=== PATIENT | male | born 1975 | race Caucasian/White ===

== ENCOUNTER 2019-11-05 15:43 | Inpatient (IN) | payer OTHER ==
[~2019-11-05] VITALS: Ht 175.2 cm; Wt 126.6 kg
[~2019-11-05 15:43] MED LIST: GEODON20 MG PO; HYDROXYZINE PAM50 MG PO; NEURONTIN600 MG PO; ONDANSETRON4 MG PO; PRINIVIL40 MG PO; SINEMET 25-100M1 TAB PO
[2019-11-05 15:44] VITALS: BP 139/91
[2019-11-05 16:43] LABS: BASO # 0.1 10*3/uL (0.0-0.1); BASO % 1.1 % (0.0-1.0); EOS # 0.3 10*3/uL (0.0-0.4); EOS % 2.7 % (1.0-4.0); HEMATOCRIT 43.7 % (42.0-52.0); HEMOGLOBIN 15.3 g/dl (14.0-18.0); LYMPH # 4.1 10*3/uL (1.3-4.4); LYMPH % 39.9 % (27.0-41.0); MEAN CELL VOLUME 96.7 fl (80.0-94.0); MEAN CORPUSCULAR HGB 33.8 pg (27.0-31.0); MEAN PLATELET VOLUME 9.8 fl (9.6-12.3); MONO # 0.8 10*3/uL (0.1-1.0); MONO % 7.7 % (3.0-9.0); NEUT % 48.4 % (47.0-73.0); PLATELET COUNT AUTOMATED 233 10*3/uL (130-400); RED BLOOD COUNT 4.52 10*6/uL (4.50-5.90); RED CELL DISTRI WIDTH 12.1 % (0-14.5); WHITE BLOOD COUNT 10.3 10*3/uL (4.8-10.8)
[2019-11-05 16:59] LABS: ACETAMINOPHEN (TYLENOL) < 5.0 ug/ml (10-30); ALBUMIN 3.3 gm/dl (3.1-4.5); ALKALINE PHOSPHATASE 100 U/L (45-117); BUN 10 mg/dl (7-24); CHLORIDE 109 mmol/L (98-107); ETHYL ALCOHOL < 3.0 mg/dl (<3); POTASSIUM 4.3 mmol/L (3.5-5.1); SGOT/AST 77 IU/L (3-35); SGPT/ALT 118 U/L (12-78); SODIUM 139 mmol/L (136-145); TOTAL PROTEIN 7.7 gm/dL (6.4-8.2)
[2019-11-05 17:13] LABS: BILIRUBIN NEGATIVE (NEGATIVE); BLOOD 2+ (NEGATIVE); CLARITY CLEAR (CLEAR); COLOR YELLOW (YELLOW); GLUCOSE NEGATIVE (NEGATIVE); KETONE NEGATIVE (NEGATIVE); LEUKO ESTERASE NEGATIVE (NEGATIVE); NITRITE NEGATIVE (NEGATIVE); PH 5.5 (5.0-9.0); SPECIFIC GRAVITY >= 1.030 (1.005-1.030); UROBILINOGEN 0.2 E.U./dl (0.2-1.0)
--- NOTE | 2019-11-05 17:18 | NUR ---
Patient meets [facility] criteria. Patient CINA=17, CIWAB=28. Patint does not know what he wants to do for post discharge.
[2019-11-05 17:22] LABS: URINE AMPHETAMINES > 1000 (1000ng/ml); URINE BARBITURATES < 200 (200ng/ml); URINE BENZODIAZEPINES > 200 (200ng/ml); URINE CANNABINOIDS (THC) < 50 (50ng/ml); URINE COCAINE > 300 (300ng/ml); URINE METHADONE < 300 (300ng/ml); URINE OPIATES > 300 (300ng/ml)
[2019-11-05 17:24] LABS: URINE PHENCYCLIDINE < 25 (25ng/ml)
--- NOTE | 2019-11-05 19:30 | NUR ---
PT GIVEN DINNER TRAY.
--- NOTE | 2019-11-05 19:35 | NUR ---
RECEIVED REPORT FROM JHONATAN FRANCES
[2019-11-05 22:30] VITALS: BP 121/71
--- NOTE | 2019-11-05 22:30 | NUR ---
Time: 2229 A 44 year old M admitted to under services of CAM SANDERS DO. Pt. arrived via bed from ER. Chief complaint: OPIATE, XANAX, AND FENTANYL ABUSE. JULISA VEGA
--- NOTE | 2019-11-05 22:56 | NUR ---
Patient displaying withdrawal symptoms, including: irritability, anxiousness, restlessness and agitation. Scheduled/PRN medications provided, SEE EMAR. Will continue to monitor medication effectiveness.
[2019-11-05] MEDS ORDERED: AMLODIPINE BESY10 MG PO (23:21)
[2019-11-05] MEDS ORDERED: GABAPENTIN800 MG PO (23:22)
--- NOTE | 2019-11-06 | NUR ---
Patient resting. Responding to scheduled medications with fewer complaints of pain and anxiety.
--- NOTE | 2019-11-06 01:15 | NUR ---
MEDICATED WITH ROUTINE MEDS TO ASSIST WITH WITHDRAWAL
[2019-11-06 04:00] VITALS: BP 118/68
--- NOTE | 2019-11-06 04:00 | NUR ---
Patient resting. Responding to scheduled medications with fewer complaints of pain and anxiety.
--- NOTE | 2019-11-06 06:30 | NUR ---
Patient resting. Responding to scheduled medications with fewer complaints of pain and anxiety.
[2019-11-06 08:00] VITALS: BP 110/67
[2019-11-06 12:00] VITALS: BP 115/58
[2019-11-06 16:00] VITALS: BP 148/89
[2019-11-06 20:00] VITALS: BP 139/75
--- NOTE | 2019-11-06 21:40 | NUR ---
PATIENT C/O BODY/BACK ACHE, RESTLESS LEGS, AND ANXIETY WHEN 2200 [employer] ADMINISTERED. PATIENT IS SLEEPING, MEDS RETURED TO [facility].
[2019-11-07] VITALS: BP 135/78
--- NOTE | 2019-11-07 03:56 | NUR ---
24 HR. CHART CHECK COMPLETE.
--- NOTE | 2019-11-07 05:45 | NUR ---
PRN TYLENOL, MOTRIN, AND ROBAXIN GIVEN AT THIS TIME FOR HEADACHE, BODYACHES/BACK ACHE. CALL LIGHT IS WITHIN REACH, WILL MONITOR EFFECT.
--- NOTE | 2019-11-07 07:30 | NUR ---
PRN MEDICATIONS APPEAR EFFECTIVE, PATIENT IS SLEEPING WITH EASY AND REGULAR RESPERS ON ROOM AIR.
[2019-11-07 08:00] VITALS: BP 110/76
[2019-11-07 12:00] VITALS: BP 122/62
[2019-11-07 16:00] VITALS: BP 144/92
[2019-11-07 20:00] VITALS: BP 130/76
--- NOTE | 2019-11-07 21:20 | NUR ---
Neurological: AAOX3: COOPERATIVE, SPEECH CLEAR Respiratory: ROOM AIR, NONLABORED Breath sounds: CLEAR/DIMINISHED T/O Cough: NONE NOTED Cardiovascular: HRR, DENIES CP/PRESSURE, NO EDEMA, PPP Gastrointestinal: NORMOACTIVE X4 QUADS, DENIES N/V/D/C, ABD NONTENDER/OBESE Genito/Urinary: DENIES DYSURIA, BRP/URINAL Musculoskeketal: AMBULATORY STEADY GAIT, SKIN INTACT PATIENT IS C/O BACK PAIN, MUSCLE ACHES, RESTLESS LEGS, HEADACHE, AND ANXIETY. PRN TYLENOL, REQUIP, ROBAXIN, MOTRIN, AND VISTARIL GIVEN. PATIENT TOLERATED WELL, CALL LIGHT IS WITHIN REACH. WILL MONITOR EFFECT OF MEDICATIONS. SRIDHAR VALENTE A
--- NOTE | 2019-11-07 22:00 | NUR ---
PRN MEDICATIONS EFFECTIVE, CALL LIGHT IS WITHIN REACH, WILL MONITOR EFFECT.
[2019-11-08] VITALS: BP 133/83
--- NOTE | 2019-11-08 03:58 | NUR ---
PATIENT SLEEPING WITH EASY AND REGULAR RESPERS ON ROOM AIR. CALL LIGHT IS WITHIN REACH.
--- NOTE | 2019-11-08 06:32 | NUR ---
PRN TYLENOL GIVEN FOR BACK PAIN, VISTARIL FOR ANXIETY, AND ROBAXIN FOR MUSCLE ACHES. CALL LIGHT IS WITHIN REACH, WILL MONITOR EFFECT.
[2019-11-08 06:34] LABS: BASO # 0.1 10*3/uL (0.0-0.1); EOS # 0.3 10*3/uL (0.0-0.4); EOS % 2.4 % (1.0-4.0); HEMOGLOBIN 16.8 g/dl (14.0-18.0); LYMPH % 35.4 % (27.0-41.0); MEAN CELL VOLUME 94.3 fl (80.0-94.0); MEAN PLATELET VOLUME 9.9 fl (9.6-12.3); MONO # 0.8 10*3/uL (0.1-1.0); MONO % 6.7 % (3.0-9.0); NEUT # 6.1 10*3/uL (2.3-7.9); NEUT % 54.1 % (47.0-73.0); PLATELET COUNT AUTOMATED 265 10*3/uL (130-400); RED BLOOD COUNT 5.09 10*6/uL (4.50-5.90); RED CELL DISTRI WIDTH 11.9 % (0-14.5); WHITE BLOOD COUNT 11.2 10*3/uL (4.8-10.8)
--- NOTE | 2019-11-08 06:38 | NUR ---
PATIENT AMBULATED TO NURSES STATION WITH BAG STATING HE IS LEAVING. EDUCATED ON IMPORTANCE OF LAST DOSE OF SUBUTEX AND THAT HE COULD POSSIBLY BE DISCHARGED FROM BEFORE THE SCHEDULESE DOSE WHEN THE DOCTORS ROUND. HE VERBALIZED UNDERSTANDING. BELONGINGS GIVEN TO PATIENT, EXPLAINED TO PATIENT THAT PHARMACY COMES IN A 7AM IF HE COULD WAIT UNTIL THEN TO RECIEVE MEDICATIONS FROM. PATIENT IS ADAMENT ABOUT LEAVING. DR. VERDUZCO AND SHIFT DIRECTOR RENÉE LEHMAN AWARE. PATIENT AMBULATED OUT WITH AND BELONGINGS. NO HEP LOCK OR TRANSFORMATION ANALYST.
[2019-11-08 07:02] LABS: CREATININE 0.98 mg/dL (0.70-1.30)
== END 2019-11-08 06:38 | disposition left against medical advice (07) | DRG 894 ==
LOC: ED 15:43 → EDHOLD 18:13 → 5E 22:14
PROVIDERS: Physician Assistant; ADMIT Emergency Medicine
DX: F11.23 Opioid dependence with withdrawal (principal); Z68.41 Body mass index [BMI] 40.0-44.9, adult; F14.23 Cocaine dependence with withdrawal; F13.230 Sedative, hypnotic or anxiolytic dependence with withdrawal, uncomplicated; E87.8 Other disorders of electrolyte and fluid balance, not elsewhere classified; R74.0 Nonspecific elevation of levels of transaminase and lactic acid dehydrogenase [LDH]; F15.10 Other stimulant abuse, uncomplicated; Z53.29 Procedure and treatment not carried out because of patient's decision for other reasons; E66.01 Morbid (severe) obesity due to excess calories; B19.20 Unspecified viral hepatitis C without hepatic coma; I10 Essential (primary) hypertension; F20.9 Schizophrenia, unspecified; F17.210 Nicotine dependence, cigarettes, uncomplicated; F31.9 Bipolar disorder, unspecified; Z71.6 Tobacco abuse counseling; Z79.899 Other long term (current) drug therapy